=== PATIENT | male | born 1955 | race African-American/Black ===

== ENCOUNTER 2020-02-27 04:57 | Emergency (ER) | payer SELFPAY ==
[~2020-02-27] VITALS: Ht 182.9 cm; Wt 115.0 kg
[2020-02-27] MEDS ORDERED: DEXAMETHASONE 10 MG/ML VIAL IV ONE (05:15)
[2020-02-27] MEDS ORDERED: ASPIRIN 81MG TABLET PO ONE (05:15)
[2020-02-27] MEDS ORDERED: EPINEPHRINE 10 MG in SODIUM CHLORIDE 0.9% 250 ML IV PRN (05:30)
[2020-02-27 05:42] VITALS: BP 145/125
[2020-02-27] MEDS ORDERED: ALTEPLASE 50MG/VIAL IV NR ×2 (05:45→06:00)
[2020-02-27] MEDS ORDERED: SUCCINYLCHOLINE CHLORIDE 200MG/10ML IV ONE (07:00)
== END 2020-02-27 05:35 | disposition expired ==
LOC: ER 04:57
DX: U07.1 COVID-19 (principal); I46.9 Cardiac arrest, cause unspecified; I50.9 Heart failure, unspecified; R60.0 Localized edema
CPT/HCPCS: 31500; 36680; 92950; 99291; J0330; J2997